=== PATIENT | female | born 1995 | race Hispanic/Latino ===

== ENCOUNTER 2018-01-17 15:56 | Emergency (ER) | payer BC | END 2018-01-17 16:30 | disposition home or self-care (01) | LOC: BURERS 15:56 | DX: R07.89 Other chest pain (principal) | CPT/HCPCS: 93005 ==

== ENCOUNTER 2018-11-03 17:09 | Emergency (ER) | payer BC, SELFPAY ==
[2018-11-03] MEDS ORDERED: Ondansetron ODT 4 MG TAB ONE (17:29)
[2018-11-03] MEDS ORDERED: Lorazepam 0.5 MG TAB ONE (17:29)
== END 2018-11-03 18:06 | disposition home or self-care (01) ==
LOC: BURERS 17:09
DX: R45.0 Nervousness (principal); F41.9 Anxiety disorder, unspecified; T43.215A Adverse effect of selective serotonin and norepinephrine reuptake inhibitors, initial encounter; F32.9 Major depressive disorder, single episode, unspecified; Z79.899 Other long term (current) drug therapy
CPT/HCPCS: 99283; Q0162

== ENCOUNTER 2020-01-09 11:06 | Outpatient (CLI) | payer OTHER ==
--- NOTE | 2020-01-09 14:25 | ULT ---
PELVIC ULTRASOUND: Date: 01/09/2020 Ultrasonography of the pelvis was performed. The uterus is small, measuring 6.8 x 3.7 x 4.3 cm. The e ndometrium is mildly thick at 1.1 cm. The right ovary measured 2.8 cm in length and has blood flow. The left ovary measured 3.7 cm in lengt h and has blood flow. Follicles are seen in each, though they are not excessive in number. There is n o free fluid in the cul-de-sac. IMPRESSION: Mild endometrial thickening. POS: HOME
== END 2020-01-09 11:07 | disposition home or self-care (01) ==
LOC: BURULT 11:06
PROVIDERS: ATTEND Physician Assistant
DX: N92.1 Excessive and frequent menstruation with irregular cycle (principal); R93.89 Abnormal findings on diagnostic imaging of other specified body structures
CPT/HCPCS: 76856

== ENCOUNTER 2020-11-26 08:54 | Outpatient (CLI) | payer OTHER ==
--- NOTE | 2020-11-26 14:28 | RAD ---
LEFT KNEE TWO VIEWS: 11/26/20 No fracture, dislocation, or joint effusion was seen. The joint space is normal in appearance and the articular surfaces are smooth. A small bone island is seen in the proximal tibia, of no concern. IMPRESSION: No acute traumatic finding. POS: HOME
== END 2020-11-26 08:55 | disposition home or self-care (01) ==
LOC: BURRAD 08:54
PROVIDERS: ATTEND Physician Assistant
DX: Z91.81 History of falling (principal)